=== PATIENT | male | born 1985 ===

== ENCOUNTER 2023-12-01 16:27 | Emergency (ER) | payer SELFPAY ==
[~2023-12-01] VITALS: Ht 165.1 cm; Wt 74.8 kg
[2023-12-01] MEDS ORDERED: Tetanus,Diphtheria Toxd Ped/Pf 0.5 ML VIAL IM ONE (16:45)
[2023-12-01] MEDS ORDERED: Bacitracin Zinc Oint 1GRAM UD Packet TOP ONE (16:50)
[2023-12-01] MEDS ORDERED: Mupirocin 2% Ointment 22 GM TOP ONE (16:50)
[2023-12-01] MEDS ORDERED: Diphth,Pertuss(Acell),Tet Vac 0.5 ML VIAL IM ONE (16:50)
[2023-12-01] MEDS ORDERED: Mupirocin22 GM TOP (16:54)
== END 2023-12-01 17:22 | disposition home or self-care (01) ==
LOC: ER 16:27
DX: T22.212A Burn of second degree of left forearm, initial encounter (principal); T31.0 Burns involving less than 10% of body surface; X10.2XXA Contact with fats and cooking oils, initial encounter
CPT/HCPCS: 90471; 90702; 90715; 99282-25; A9270